=== PATIENT | male | born 1970 | race Two or more races ===

== ENCOUNTER 2023-01-13 12:55 | Emergency (ER) | payer MEDICAID ==
[~2023-01-13] VITALS: Ht 165.1 cm; Wt 81.0 kg
[2023-01-13 14:32] VITALS: BP 167/127; PULSE 101; RESP 18; O2SAT 99
[2023-01-13] MEDS ORDERED: METH-1182 PO (14:50)
[2023-01-13] MEDS ORDERED: IBUP-1456 PO (14:50)
[2023-01-13 14:53] VITALS: TEMP 98.2
[2023-01-13] MEDS ORDERED: IBUPROFEN 800 MG TAB PO ONE (15:00)
== END 2023-01-13 14:55 | disposition home or self-care (01) ==
LOC: EDBD 12:55 → ER 12:55 → MERGE 12:55 → ER 14:54
DX: S39.012A Strain of muscle, fascia and tendon of lower back, initial encounter (principal); Z79.1 Long term (current) use of non-steroidal anti-inflammatories (NSAID); Z79.899 Other long term (current) drug therapy; X50.1XXA Overexertion from prolonged static or awkward postures, initial encounter; Y93.89 Activity, other specified; Y92.89 Other specified places as the place of occurrence of the external cause; Y99.8 Other external cause status
CPT/HCPCS: 72100

== ENCOUNTER 2023-04-21 19:55 | Emergency (ER) | payer MEDICAID ==
[~2023-04-21] VITALS: Ht 165.1 cm; Wt 84.0 kg
[~2023-04-21 19:55] MED LIST: IBUP-1456 PO; METH-1182 PO
[2023-04-21] MEDS ORDERED: LORazepam 2MG/ML-1ML VIAL IM ONE (20:30)
[2023-04-21 20:42] LABS: Basophils # (auto) 0.1 10 ^3/uL (0-0.2); Eosinophils # (auto) 0.3 10 ^3/uL (0-0.8); Eosinophils % (auto) 3.4 % (0.0-7.0); Hematocrit 46.4 % (41.0-53.0); Hemoglobin 15.5 g/dL (13.5-17.5); Lymphocytes # (auto) 2.8 10 ^3/uL (0.4-5.4); Lymphocytes % (auto) 28.4 % (10.0-50.0); Mean Corpuscular Hemoglobin 30.9 pg (28.0-32.0); Mean Corpuscular Hgb Conc. 33.4 g/dL (32.0-36.0); Mean Corpuscular Volume 92.3 fL (80.0-100.0); Monocytes # (auto) 0.9 10 ^3/uL (0-1.3); Monocytes % (auto) 9.4 % (0.0-12.0); Neutrophils # (auto) 5.8 10 ^3/uL (1.6-8.6); Neutrophils % (auto) 57.8 % (37.0-80.0); Nucleated Red Blood Cells % 0.1 %; Red Blood Cells 5.03 10^6/uL (4.5-5.90); Red Cell Distribution Width 14.8 % (11.8-14.3)
[2023-04-21 20:57] LABS: Alanine Aminotransferase 29 U/L (7-40); Albumin 4.4 g/dL (3.2-4.8); Alkaline Phosphatase 77 U/L (46-116); Anion Gap 7 (5-15); Aspartate Aminotransferase 20 U/L (13-40); BUN/Creatinine Ratio 15.9 (10.0-20.0); Blood Urea Nitrogen 17 mg/dL (9-23); Calcium 9.3 mg/dL (8.5-10.1); Carbon Dioxide 23 mmol/L (20-30); Chloride 105 mmol/L (98-107); Glucose 92 mg/dL (74-106); Potassium 4.3 mmol/L (3.5-5.1); Sodium 135 mmol/L (136-145)
[2023-04-21 20:58] LABS: Bilirubin, Total 0.4 mg/dL (0.2-1.0); Total Protein 7.2 g/dL (5.7-8.2)
[2023-04-21 21:01] LABS: Urine Bacteria NONE SEEN /hpf (None Seen); Urine Blood Negative /uL (Negative); Urine Clarity Clear (Clear); Urine Color Colorless (Yellow); Urine Protein, UAD Negative (Negative); Urine Specific Gravity 1.017 (1.001-1.035); Urine Urobilinogen Normal (Negative); Urine WBC <1 /hpf (0 - 3); Urine pH 5.5 (5.0-8.0)
[2023-04-21 21:05] LABS: Amphetamine Screen, Urine Neg (NEGATIVE); Barbiturate Scree,Urine Neg (NEGATIVE); Benzodiazephine Screen, Urine Neg (NEGATIVE); Cannabinoid Screen, Urine Neg (NEGATIVE); Cocaine Screen, Urine Neg (NEGATIVE); Opiate Scree,Urine Neg (NEGATIVE); Phencyclidine Screen, Urine Neg (NEGATIVE)
[2023-04-21] MEDS ORDERED: IBU600T PO (21:08)
[2023-04-21 21:22] VITALS: BP 136/94; PULSE 80; RESP 19; TEMP 98.2; O2SAT 97
== END 2023-04-21 21:55 | disposition home or self-care (01) ==
LOC: ER 19:55
DX: F41.9 Anxiety disorder, unspecified (principal); K21.9 Gastro-esophageal reflux disease without esophagitis; I10 Essential (primary) hypertension; Z79.899 Other long term (current) drug therapy
CPT/HCPCS: 36415; 80053; 80307; 81001; 84484; 85025; 93005; 96372; 99284; J2060

== ENCOUNTER 2023-04-25 14:35 | Emergency (ER) | payer MEDICAID ==
[~2023-04-25] VITALS: Ht 165.1 cm; Wt 83.9 kg
[~2023-04-25 14:35] MED LIST changes: +IBU600T PO
[2023-04-25 14:43] VITALS: BP 168/99; PULSE 82; RESP 18; O2SAT 98
== END 2023-04-25 17:20 | disposition left against medical advice (07) ==
LOC: ER 14:35
DX: F41.9 Anxiety disorder, unspecified (principal); Z53.21 Procedure and treatment not carried out due to patient leaving prior to being seen by health care provider

== ENCOUNTER 2023-05-16 19:12 | Emergency (ER) | payer MEDICAID ==
[~2023-05-16] VITALS: Ht 165.1 cm; Wt 185.0 kg
[2023-05-16 19:30] VITALS: BP 147/83; PULSE 91; RESP 20; O2SAT 96
[2023-05-16 19:56] LABS: Basophils # (auto) 0.1 10 ^3/uL (0-0.2); Basophils % (auto) 0.5 % (0.0-2.0); Eosinophils # (auto) 0.4 10 ^3/uL (0-0.8); Eosinophils % (auto) 3.5 % (0.0-7.0); Hematocrit 47.2 % (41.0-53.0); Hemoglobin 15.7 g/dL (13.5-17.5); Lymphocytes % (auto) 24.4 % (10.0-50.0); Mean Corpuscular Hemoglobin 30.6 pg (28.0-32.0); Mean Corpuscular Hgb Conc. 33.4 g/dL (32.0-36.0); Mean Corpuscular Volume 91.7 fL (80.0-100.0); Monocytes % (auto) 8.4 % (0.0-12.0); Neutrophils # (auto) 7.9 10 ^3/uL (1.6-8.6); Neutrophils % (auto) 63.2 % (37.0-80.0); Nucleated Red Blood Cells % 0.1 %; Red Blood Cells 5.14 10^6/uL (4.5-5.90); Red Cell Distribution Width 14.8 % (11.8-14.3); White Blood Cell 12.4 10^3/uL (4.4-10.8)
[2023-05-16 20:13] LABS: Alanine Aminotransferase 28 U/L (7-40); Alkaline Phosphatase 75 U/L (46-116); Calcium 9.1 mg/dL (8.5-10.1)
[2023-05-16 20:14] LABS: Albumin 4.1 g/dL (3.2-4.8); Aspartate Aminotransferase 19 U/L (13-40); BUN/Creatinine Ratio 16.7 (10.0-20.0); Bilirubin, Total 0.2 mg/dL (0.2-1.0); Blood Urea Nitrogen 18 mg/dL (9-23); Carbon Dioxide 29 mmol/L (20-30); Glucose 97 mg/dL (74-106); Potassium 4.4 mmol/L (3.5-5.1); Sodium 139 mmol/L (136-145); Total Protein 6.2 g/dL (5.7-8.2)
[2023-05-16 20:16] LABS: Anion Gap 8 (5-15); Chloride 102 mmol/L (98-107)
== END 2023-05-16 20:59 | disposition left against medical advice (07) ==
LOC: ER 19:12
DX: R07.89 Other chest pain (principal); R10.13 Epigastric pain; R06.02 Shortness of breath; Z53.21 Procedure and treatment not carried out due to patient leaving prior to being seen by health care provider
CPT/HCPCS: 36415; 71045; 80053; 83880; 84484; 85025; 93005

== ENCOUNTER 2023-09-03 07:19 | Emergency (ER) | payer MEDICAID ==
[~2023-09-03] VITALS: Ht 167.6 cm; Wt 80.6 kg
[2023-09-03 07:37] VITALS: BP 144/102; PULSE 74; RESP 16; O2SAT 96
[2023-09-03 08:25] LABS: Alanine Aminotransferase 35 U/L (7-40); Albumin 4.2 g/dL (3.2-4.8); Alkaline Phosphatase 71 U/L (46-116); Anion Gap 3 (5-15); Aspartate Aminotransferase 14 U/L (13-40); BUN/Creatinine Ratio 15.3 (10.0-20.0); Blood Urea Nitrogen 15 mg/dL (9-23); Calcium 9.3 mg/dL (8.5-10.1); Carbon Dioxide 30 mmol/L (20-30); Chloride 107 mmol/L (98-107); Glucose 100 mg/dL (74-106); Potassium 4.4 mmol/L (3.5-5.1); Sodium 140 mmol/L (136-145)
[2023-09-03 08:26] LABS: Bilirubin, Total 0.2 mg/dL (0.2-1.0); Total Protein 6.9 g/dL (5.7-8.2)
[2023-09-03 08:28] LABS: Basophils # (auto) 0.1 10 ^3/uL (0-0.2); Basophils % (auto) 0.8 % (0.0-2.0); Eosinophils # (auto) 0.4 10 ^3/uL (0-0.8); Eosinophils % (auto) 5.1 % (0.0-7.0); Hematocrit 50.2 % (41.0-53.0); Hemoglobin 16.8 g/dL (13.5-17.5); Lymphocytes # (auto) 2.8 10 ^3/uL (0.4-5.4); Lymphocytes % (auto) 32.3 % (10.0-50.0); Mean Corpuscular Hemoglobin 31.1 pg (28.0-32.0); Mean Corpuscular Hgb Conc. 33.5 g/dL (32.0-36.0); Mean Corpuscular Volume 92.8 fL (80.0-100.0); Monocytes # (auto) 0.8 10 ^3/uL (0-1.3); Monocytes % (auto) 8.9 % (0.0-12.0); Neutrophils # (auto) 4.6 10 ^3/uL (1.6-8.6); Neutrophils % (auto) 52.9 % (37.0-80.0); Nucleated Red Blood Cells % 0.2 %; Red Blood Cells 5.41 10^6/uL (4.5-5.90); Red Cell Distribution Width 15.4 % (11.8-14.3); White Blood Cell 8.7 10^3/uL (4.4-10.8)
[2023-09-03 09:01] LABS: Urine Bacteria FEW /hpf (None Seen); Urine Blood Negative /uL (Negative); Urine Clarity Clear (Clear); Urine Color Light-Yellow (Yellow); Urine Protein, UAD Negative (Negative); Urine Specific Gravity 1.017 (1.001-1.035); Urine Urobilinogen Normal (Negative); Urine WBC <1 /hpf (0 - 3); Urine pH 5.5 (5.0-9.0)
[2023-09-03 09:12] LABS: Lipase 53 U/L (12-53)
[2023-09-03 09:13] LABS: Amphetamine Screen, Urine Neg (NEGATIVE)
[2023-09-03 09:14] LABS: Barbiturate Scree,Urine Neg (NEGATIVE); Benzodiazephine Screen, Urine Neg (NEGATIVE); Cannabinoid Screen, Urine Neg (NEGATIVE); Cocaine Screen, Urine Neg (NEGATIVE); Opiate Scree,Urine Neg (NEGATIVE); Phencyclidine Screen, Urine Neg (NEGATIVE)
[2023-09-03] MEDS ORDERED: TRAZ-227 PO (09:43)
[2023-09-03] MEDS ORDERED: LISI20TA56 PO (09:43)
[2023-09-03] MEDS ORDERED: MORPHINE SULFATE INJ 2 MG/ml SYRG IV PRN ×2 (09:45)
[2023-09-03] MEDS ORDERED: NITROGLYCERIN 0.4 MG SL TAB SL PRN (09:45)
[2023-09-03] MEDS ORDERED: HYDROcodone-ACET 5/325MG TAB PO PRN (09:45)
[2023-09-03] MEDS ORDERED: ACETAMINOPHEN 325 MG TAB PO PRN (09:45)
[2023-09-03] MEDS ORDERED: DOCUSATE SOD 100 MG CAP PO PRN (09:45)
[2023-09-03] MEDS ORDERED: ONDANSETRON HCL 4 MG/2 ML VIAL IV PRN (09:45)
[2023-09-03] MEDS ORDERED: LISINOPRIL 20 MG TAB PO SCH (10:00)
[2023-09-03] MEDS ORDERED: traZODone HCL 50 MG TAB PO SCH (22:00)
[2023-09-04] MEDS ORDERED: PANTOPRAZOLE 40 MG TAB PO SCH (06:00)
== END 2023-09-03 16:57 | disposition left against medical advice (07) ==
LOC: ER 07:19 → OVERFLOW 09:42 → UNDOADMIN 09:42 → ER 16:57
DX: R10.12 Left upper quadrant pain (principal); I10 Essential (primary) hypertension; K21.9 Gastro-esophageal reflux disease without esophagitis; Z79.1 Long term (current) use of non-steroidal anti-inflammatories (NSAID); Z79.899 Other long term (current) drug therapy
CPT/HCPCS: 36415; 74176; 76705; 80053; 80307; 81001; 83690; 85025

== ENCOUNTER 2024-05-29 05:20 | Emergency (ER) | payer MEDICAID ==
[~2024-05-29] VITALS: Ht 167.6 cm; Wt 77.3 kg
[~2024-05-29 05:20] MED LIST changes: +LISI20TA56 PO; +TRAZ-227 PO
[2024-05-29 05:26] VITALS: BP 137/83; RESP 18; TEMP 98; O2SAT 96
[2024-05-29 07:00] VITALS: PULSE 79
--- NOTE | 2024-05-29 07:02 | ECG ---
[facility] Test Date: 2024-05-29 Test Time: 07:00:29 Pat Name: JENNIE PETERSON Department: FT Room: Gender: [employer]: : 1970 Requested By: SANTANA AVILA Order Number: [id number] Reading MD: Evangelista Maki Measurements Intervals [place] Rate: 79 P: 46 LA: 145 QRS: -41 QRSD: 99 T: 6 QT: 365 QTc: 419 Interpretive Statements Sinus rhythm Abnormal R-wave progression, early transition Inferior infarct, age indeterminate Electronically Signed On 06-01-2024 17:51:08 PST by Evangelista Maki Please click the below link to view image of tracing.
--- NOTE | 2024-05-29 07:20 | DVH ---
XY CHEST TWO VIEWS ROUTINE CLINICAL HISTORY: r/o pna, cardiomegaly, pneumothorax ect COMPARISON: 05/16/2023 TECHNIQUE: Frontal and lateral view of the chest was obtained FINDINGS: Lines and Tubes: None Lungs: No focal consolidation. Pleura: No effusion. No pneumothorax. Cardiomediastinal contours: Unremarkable Bones: No acute osseous abnormality. IMPRESSION: 1. No acute cardiopulmonary disease.
[2024-05-29 08:11] LABS: Basophils # (auto) 0.1 10 ^3/uL (0-0.2); Basophils % (auto) 0.7 % (0.0-2.0); Eosinophils # (auto) 0.2 10 ^3/uL (0-0.8); Eosinophils % (auto) 1.9 % (0.0-7.0); Hematocrit 49.5 % (41.0-53.0); Hemoglobin 17.3 g/dL (13.5-17.5); Lymphocytes # (auto) 2.3 10 ^3/uL (0.4-5.4); Lymphocytes % (auto) 22.8 % (10.0-50.0); Mean Corpuscular Hemoglobin 31.8 pg (28.0-32.0); Mean Corpuscular Hgb Conc. 34.9 g/dL (32.0-36.0); Mean Corpuscular Volume 91.1 fL (80.0-100.0); Monocytes # (auto) 0.8 10 ^3/uL (0-1.3); Monocytes % (auto) 7.9 % (0.0-12.0); Neutrophils # (auto) 6.7 10 ^3/uL (1.6-8.6); Neutrophils % (auto) 66.7 % (37.0-80.0); Nucleated Red Blood Cells % 0.1 %; Platelet Count (auto) 329 10^3/uL (140-450); Red Blood Cells 5.44 10^6/uL (4.5-5.90); Red Cell Distribution Width 15.1 % (11.8-14.3); White Blood Cell 10.1 10^3/uL (4.4-10.8)
[2024-05-29 08:22] LABS: Chloride 102 mmol/L (98-107); Potassium 4.4 mmol/L (3.5-5.1); Sodium 137 mmol/L (136-145)
[2024-05-29 08:23] LABS: Anion Gap 8 (5-15); Carbon Dioxide 27 mmol/L (20-31)
[2024-05-29 08:24] LABS: Calcium 10.4 mg/dL (8.7-10.4)
[2024-05-29 08:29] LABS: BUN/Creatinine Ratio 16.3 (10.0-20.0); Blood Urea Nitrogen 20 mg/dL (9-23); Magnesium 2.2 mg/dL (1.6-2.6)
[2024-05-29 09:01] LABS: Glucose 101 mg/dL (74-106)
--- NOTE | 2024-05-29 09:19 | ED.PDOC ---
Musculoskeletal HPI Comments 54 M BIB ambulance for L CP Pain rated moderate No associated symptoms Has not taken medications Denies having this before Denies history of WA or CVA Denies lightheadedness or dizziness Denies acid reflux, recurrent bitter/sour taste in mouth Denies shortness of breath Denies palpitations, leg swelling Denies family history of heart issues or WA Denies history of panic attacks Denies recent trauma to the chest, history of significant trauma to the chest nor surgeries of the chest Denies fever chills nausea vomiting diarrhea Chief Complaint: Upper Extremity Time Seen by MD: 06:18 Primary Care Provider: [facility] Reviewed Notes: Nurses Notes, Medications, Allergies Allergies: Coded Allergies: NO KNOWN ALLERGIES (Unverified , 10/17/14) Home Meds Active Scripts Ibuprofen Micronized (MOTRIN TABLET) 600 Mg Tb, 600 MG PO TID PRN for 5 Days, #15 TAB *Black box warning-NSAIDS can increase risk of WA & hypertension, GI irritation, ulceration, bleed, perferation. Do not use post cardiac surgery. Use short duration/lowest effective dose. Prov:TOM ZARAGOZA MD 04/21/23 Methocarbamol (Methocarbamol) 750 Mg Tab, 750 MG PO BID, #20 TAB Prov:JESS BARBOZA 01/13/23 Ibuprofen (Ibuprofen) 800 Mg Tab, 1 TAB PO TID, #30 TAB Prov:JESS BARBOZA 01/13/23 Reported Medications Trazodone Hcl (Trazodone Hcl) 50 Mg Tab, 1 TAB PO 09/03/23 Lisinopril (Lisinopril) 20 Mg Tab, 1 TAB PO DAILY 09/03/23 Information Source: Patient Mode of Arrival: EMS Past Medical History PAST MEDICAL HISTORY: GERD, HTN Surgical History: Denies all surgeries Family History Family History: Unobtainable Social History Smoker: Non-Smoker Alcohol: Occasionally Drugs: Denies Drug Use Lives In: Home All Other Systems: Reviewed and Negative (per hpi) Physical Exam General Appearance: No Apparent Distress, Normal HEENT: Normal ENT Inspection, Pharynx Normal, TMs Normal Neck: Full Range of Motion, Non-Tender, Normal, Normal Inspection Respiratory: Chest Non-Tender, Lungs Clear, No Accessory Muscle Use, No Respiratory Distress, Normal Breath Sounds Cardiovascular: No Edema, No JVD, No Murmur, No Gallop, Regular Rate/Rhythm Breast Exam: Deferred Gastrointestinal: No Organomegaly, Non Tender, No Pulsatile Mass, Normal Bowel Sounds, Soft Genitalia: Deferred Pelvic: Deferred Rectal: Deferred Extremities: No calf tenderness, Normal capillary refill, Normal inspection, Normal range of motion, Non-tender, No pedal edema Musculoskeletal : Apperance: Normal Neurologic: Alert, No Motor Deficits, Normal Affect, Normal Mood, No Sensory Deficits Cerebellar Function: Normal Reflexes: Normal Skin: Dry, Normal Color, Warm Lymphatic: No Adenopathy Was a procedure done? Was a procedure done?: No Differential Diagnosis EXT Differential Diagnosis: Other X-Ray, Labs, Meds, VS Vital Signs Date Time Temp Pulse Resp B/P (MAP) Pulse Ox O2 Delivery O2 Flow Rate FiO2 05/29/24 07:00 79 05/29/24 05:26 98.0 96 18 137/83 (101) 96 98.0 05/29/24 05:26 98.0 96 18 137/83 (101) 97 05/29/24 05:26 Room Air Lab Test 05/29/24 08:55 05/29/24 07:37 Range/Units Troponin I High Sensitivity 14 13 </=54 ng/L White Blood Count 10.1 4.4-10.8 10^3/uL Red Blood Count 5.44 4.5-5.90 10^6/uL Hemoglobin 17.3 13.5-17.5 g/dL Hematocrit 49.5 41.0-53.0 % Mean Corpuscular Volume 91.1 80.0-100.0 fL Mean Corpuscular Hemoglobin 31.8 28.0-32.0 pg Mean Corpuscular Hemoglobin Concent 34.9 32.0-36.0 g/dL Red Cell Distribution Width 15.1 H 11.8-14.3 % Platelet Count 329 140-450 10^3/uL Mean Platelet Volume 8.6 6.9-10.8 fL Neutrophils (%) (Auto) 66.7 37.0-80.0 % Lymphocytes (%) (Auto) 22.8 10.0-50.0 % Monocytes (%) (Auto) 7.9 0.0-12.0 % Eosinophils (%) (Auto) 1.9 0.0-7.0 % Basophils (%) (Auto) 0.7 0.0-2.0 % Neutrophils # (Auto) 6.7 1.6-8.6 10 ^3/uL Lymphocytes # (Auto) 2.3 0.4-5.4 10 ^3/uL Monocytes # (Auto) 0.8 0-1.3 10 ^3/uL Eosinophils # (Auto) 0.2 0-0.8 10 ^3/uL Basophils # (Auto) 0.1 0-0.2 10 ^3/uL Nucleated Red Blood Cells 0.1 % Sodium Level 137 136-145 mmol/L Potassium Level 4.4 3.5-5.1 mmol/L Chloride Level 102 98-107 mmol/L Carbon Dioxide Level 27 20-31 mmol/L Anion Gap 8 5-15 Blood Urea Nitrogen 20 9-23 mg/dL Creatinine 1.23 0.700-1.30 mg/dL Glomerular Filtration Rate Calc 69 >90 mL/min BUN/Creatinine Ratio 16.3 10.0-20.0 Serum Glucose 101 74-106 mg/dL Calcium Level 10.4 8.7-10.4 mg/dL Magnesium Level 2.2 1.6-2.6 mg/dL X-Ray, Labs, Meds, VS Comment This patient has elected to leave against medical advice. In my opinion, the patient has capacity to leave AMA. The patient is clinically sober, free from distracting injury, appears to have intact insight, judgment, and reason; therefore, the patient has the capacity to make decisions. I explained to the patient that these symptoms may represent a serious underlying medical condition and the patient verbalized understanding of my concerns and understands the consequences of leaving without complete evaluation. I had a discussion with the patient about their workup and results, and informed the patient what the next step in diagnosis and treatment would be, and they verbalized understanding of this as well. I explained the risks of leaving w ithout further workup or treatment, which included reasonably foreseeable complications such as , serious injury, prolonged illness, and permanent disability. I discussed the specific benefits of additional treatment and also offered alternatives to departing AMA, such as assigning the patient a different provider or an alternate workup pathway. However, the patient declined and insisted on leaving against medical advice. I answered all of the patient's questions about their condition and I asked them to follow up with their PCP as soon as possible or return to this ER for further evaluation whenever they choose. Patient voiced understanding. Time of 1ST Reevaluation: 09:00 Reevaluation 1ST: Unchanged Patient Education/Counseling: Diagnosis, Treatment Family Education/Counseling: Diagnosis, Treatment Departure 1 Departure Time of Disposition: 09:18 Impression: Primary Impression: Left against medical advice Disposition: 07 LEFT AGAINST MEDICAL ADVICE Condition: Critical Critical Care Note Critical Care Time?: No Stability Stability form required: No Heart Score Heart Score: Heart Score Response (Comments) Value History N/A 0 EKG N/A 0 Age N/A 0 Risk Factors N/A 0 Troponin N/A 0 Total 0 SANTANA AVILA NP May 29, 2024 09:18
== END 2024-05-29 09:19 | disposition left against medical advice (07) ==
LOC: ER 05:20 → EDBD 05:20 → ER 09:19
DX: R07.89 Other chest pain (principal); I10 Essential (primary) hypertension; K21.9 Gastro-esophageal reflux disease without esophagitis; Z79.1 Long term (current) use of non-steroidal anti-inflammatories (NSAID); Z79.899 Other long term (current) drug therapy
CPT/HCPCS: 36415; 71046; 80048; 83735; 84484; 85025; 93005